=== PATIENT | male | born 1940 | race Caucasian/White ===

== ENCOUNTER 2022-01-14 20:36 | Inpatient (IN) ==
[2022-01-14 21:05] LABS: Basophils % 0.3 %; Eosinophils # 0.3 K/mcL (0.0-0.6); Eosinophils % 3.8 %; Hematocrit 39.3 % (37.5-50.1); Hemoglobin 12.7 g/dL (12.9-16.9); Immature Granulocytes % 0.5 % (0-4); Lymphocytes % 11.4 %; Mean Corpuscular HGB Conc 32.3 g/dL (31.6-35.5); Mean Corpuscular Hemoglobin 29.7 pg (28.0-33.3); Mean Platelet Volume 10.4 fL (9.4-12.4); Monocytes # 0.6 K/mcL (0.0-1.3); Monocytes % 6.4 %; Neutrophils # 6.8 K/mcL (1.6-8.9); Platelet Count 174 K/mcL (140-400); Red Blood Count 4.27 M/mcL (4.19-5.50); Red Cell Distribution Width 14.2 % (11.5-14.5); Segmented Neutrophils % 77.6 %; White Blood Count 8.7 K/mcL (4.3-11.1)
[2022-01-14 21:09] LABS: VBG HCO3 26 mEq/L (21-27); VBG PCO2 50 mmHg (41-51); VBG PH 7.33 pH Units (7.32-7.42); VBG PO2 28 mmHg (25-50)
[2022-01-14 21:37] LABS: Alanine Aminotransferase 16 Units/L (7-52); Albumin/Globulin Ratio 1.3 (1.1-2.2); Alkaline Phosphatase 63 Units/L (34-104); Aspartate Amino Transferase 32 Units/L (13-39); BUN/Creatinine Ratio 6 (6-26); Bilirubin,Total 0.8 mg/dL (0.3-1.0); Blood Urea Nitrogen 8 mg/dL (8-23); Calcium 8.9 mg/dL (8.6-10.3); Carbon Dioxide 27 mEq/L (23-29); Chloride 105 mEq/L (98-107); Globulin 3.1 g/dL (2.4-3.5); Glucose 49 mg/dL (70-105); Osmolality,Calculated 288 (280-300); Potassium 3.3 mEq/L (3.5-5.1); Sodium 141 mEq/L (136-145); Total Protein 7.1 g/dL (6.4-8.9); eGFR For African Americans > 60 (> 60); eGFR For Non-African Americans 56 (> 60)
[2022-01-14 21:42] LABS: Troponin I 0.06 ng/mL (< 0.04)
[2022-01-14] MEDS ORDERED: *HR* Dextrose 25% in Water (Syg) 10 ML SYRINGE IVP ONE (22:20)
[2022-01-14 22:22] LABS: Adenovirus Not Detected (Not Detect); Bordetella Pertussis Not Detected (Not Detect); Chlamydophila pneumoniae Not Detected (Not Detect); Coronavirus 229E Not Detected (Not Detect); Coronavirus HKU1 Not Detected (Not Detect); Coronavirus NL63 Not Detected (Not Detect); Coronavirus OC43 Not Detected (Not Detect); Human Metapneumovirus Not Detected (Not Detect); Human Rhinovirus/Enterovirus Not Detected (Not Detect); Influenza A Subtype 2009 H1 Not Detected (Not Detect); Influenza B Not Detected (Not Detect); Mycoplasma pneumoniae Not Detected (Not Detect); Parainfluenza Virus 1 Not Detected (Not Detect); Parainfluenza Virus 2 Not Detected (Not Detect); Parainfluenza Virus 3 Not Detected (Not Detect); Parainfluenza Virus 4 Not Detected (Not Detect); Respiratory Syncytial Virus Not Detected (Not Detect); SARS-CoV-2 Not Detected (Not Detect)
[2022-01-14] MEDS ORDERED: *HR* Dextrose 50 % in Water (Syg) 50 ML SYRINGE ONE (22:31)
[2022-01-14] MEDS ORDERED: Isovue-370 500 ML BOTTLE IVP ONE (23:38)
[2022-01-15] MEDS ORDERED: Naloxone 0.4 MG/ML INJ IVP PRN (01:00)
[2022-01-15] MEDS ORDERED: Melatonin 3 MG TABLET PO PRN (01:00)
[2022-01-15] MEDS ORDERED: Perflutren Lipid Microsphere 1.3 ML in 0.9 % Sodium Chloride 8.7 ML IVP PRN (01:51)
[2022-01-15] MEDS: Furosemide 20 MG/2 ML VIAL IVP SCH ×3 (02:00→21:43)
[2022-01-15] MEDS ORDERED: D5% in Water 1,000 ML IVC PRN (02:37)
[2022-01-15] MEDS ORDERED: Dextrose Gel 15 GM/37.5 ML TUBE PO PRN ×2 (02:37)
[2022-01-15] MEDS ORDERED: *HR* Dextrose 50 % in Water (Syg) 50 ML SYRINGE IVP PRN (02:37)
[2022-01-15 05:32] LABS: Hematocrit 48.7 % (37.5-50.1); Mean Corpuscular HGB Conc 33.5 g/dL (31.6-35.5); Mean Corpuscular Hemoglobin 30.5 pg (28.0-33.3); Mean Corpuscular Volume 91.2 fL (83.0-100.0); Mean Platelet Volume 10.5 fL (9.4-12.4); Platelet Count 194 K/mcL (140-400); Red Blood Count 5.34 M/mcL (4.19-5.50); Red Cell Distribution Width 14.4 % (11.5-14.5); White Blood Count 7.4 K/mcL (4.3-11.1)
[2022-01-15 05:44] LABS: Hemoglobin 16.3 g/dL (12.9-16.9)
[2022-01-15 05:51] LABS: BUN/Creatinine Ratio 6 (6-26); Blood Urea Nitrogen 7 mg/dL (8-23); Calcium 9.1 mg/dL (8.6-10.3); Carbon Dioxide 29 mEq/L (23-29); Chloride 106 mEq/L (98-107); Glucose 64 mg/dL (70-105); Magnesium 1.8 mg/dL (1.6-2.6); Osmolality,Calculated 290 (280-300); Potassium 3.8 mEq/L (3.5-5.1); Sodium 142 mEq/L (136-145); eGFR For African Americans > 60 (> 60); eGFR For Non-African Americans 58 (> 60)
[2022-01-15 06:01] LABS: Troponin I 0.06 ng/mL (< 0.04)
[2022-01-15] MEDS: *HR* Heparin 5,000 UNIT/ML VIAL SQ SCH ×2 (06:03→17:23)
[2022-01-15 06:09] LABS: Estimated Average Glucose 146 mg/dl; Hemoglobin A1C 6.7 %
[2022-01-15] MEDS: Insulin LISPRO 300 UNITS/3 ML VIAL SUBQ SCH ×4 (07:33→21:48)
[2022-01-15] MEDS: Aspirin 81 MG TAB.CHEW PO SCH (09:33)
[2022-01-16] MEDS ORDERED: diazePAM 10 MG/2 ML SYRINGE IVP ONE (03:07)
[2022-01-16 05:42] LABS: BUN/Creatinine Ratio 11 (6-26); Blood Urea Nitrogen 14 mg/dL (8-23); Calcium 8.7 mg/dL (8.6-10.3); Carbon Dioxide 24 mEq/L (23-29); Chloride 103 mEq/L (98-107); Glucose 130 mg/dL (70-105); Magnesium 1.8 mg/dL (1.6-2.6); Osmolality,Calculated 286 (280-300); Phosphorous 3.3 mg/dL (2.7-4.5); Potassium 4.1 mEq/L (3.5-5.1); Sodium 137 mEq/L (136-145); eGFR For African Americans > 60 (> 60); eGFR For Non-African Americans 57 (> 60)
[2022-01-16] MEDS: *HR* Heparin 5,000 UNIT/ML VIAL SQ SCH ×2 (05:56→17:35)
[2022-01-16] MEDS: Insulin LISPRO 300 UNITS/3 ML VIAL SUBQ SCH ×4 (07:33→20:41)
[2022-01-16] MEDS: Furosemide 20 MG/2 ML VIAL IVP SCH ×2 (07:34→20:47)
[2022-01-16] MEDS: Aspirin 81 MG TAB.CHEW PO SCH (07:34)
[2022-01-16] MEDS: QUEtiapine Fumarate 25 MG TABLET PO SCH ×2 (09:35→20:49)
[2022-01-16] MEDS ORDERED: Haloperidol Lactate 5 MG/ML VIAL IVP PRN (09:39)
[2022-01-17 02:40] LABS: BUN/Creatinine Ratio 13 (6-26); Blood Urea Nitrogen 16 mg/dL (8-23); Calcium 8.8 mg/dL (8.6-10.3); Carbon Dioxide 27 mEq/L (23-29); Chloride 101 mEq/L (98-107); Glucose 168 mg/dL (70-105); Magnesium 1.7 mg/dL (1.6-2.6); Osmolality,Calculated 295 (280-300); Phosphorous 3.1 mg/dL (2.7-4.5); Potassium 4.3 mEq/L (3.5-5.1); Sodium 140 mEq/L (136-145); eGFR For African Americans > 60 (> 60); eGFR For Non-African Americans 59 (> 60)
[2022-01-17] MEDS: *HR* Heparin 5,000 UNIT/ML VIAL SQ SCH ×2 (06:06→17:56)
[2022-01-17] MEDS: Aspirin 81 MG TAB.CHEW PO SCH (07:41)
[2022-01-17] MEDS: QUEtiapine Fumarate 25 MG TABLET PO SCH ×2 (07:41→21:02)
[2022-01-17] MEDS: Furosemide 20 MG/2 ML VIAL IVP SCH ×2 (07:42→21:02)
[2022-01-17] MEDS: Insulin LISPRO 300 UNITS/3 ML VIAL SUBQ SCH ×4 (07:45→21:02)
[2022-01-18 05:12] LABS: Basophils % 0.4 %; Eosinophils # 0.4 K/mcL (0.0-0.6); Eosinophils % 6.3 %; Hematocrit 50.1 % (37.5-50.1); Hemoglobin 16.3 g/dL (12.9-16.9); Immature Granulocytes % 0.1 % (0-4); Lymphocytes # 1.6 K/mcL (0.6-4.6); Lymphocytes % 23.9 %; Mean Corpuscular HGB Conc 32.5 g/dL (31.6-35.5); Mean Corpuscular Hemoglobin 29.6 pg (28.0-33.3); Mean Corpuscular Volume 90.9 fL (83.0-100.0); Mean Platelet Volume 11.3 fL (9.4-12.4); Monocytes # 0.7 K/mcL (0.0-1.3); Monocytes % 10.7 %; Platelet Count 170 K/mcL (140-400); Red Blood Count 5.51 M/mcL (4.19-5.50); Red Cell Distribution Width 14.1 % (11.5-14.5); Segmented Neutrophils % 58.6 %; White Blood Count 6.8 K/mcL (4.3-11.1)
[2022-01-18 06:09] LABS: BUN/Creatinine Ratio 16 (6-26); Blood Urea Nitrogen 19 mg/dL (8-23); Carbon Dioxide 28 mEq/L (23-29); Chloride 96 mEq/L (98-107); Glucose 174 mg/dL (70-105); Magnesium 1.7 mg/dL (1.6-2.6); Osmolality,Calculated 288 (280-300); Phosphorous 3.1 mg/dL (2.7-4.5); Potassium 3.7 mEq/L (3.5-5.1); Sodium 136 mEq/L (136-145); eGFR For African Americans > 60 (> 60); eGFR For Non-African Americans 58 (> 60)
[2022-01-18] MEDS: *HR* Heparin 5,000 UNIT/ML VIAL SQ SCH ×2 (06:21→18:48)
[2022-01-18] MEDS: Furosemide 20 MG/2 ML VIAL IVP SCH ×2 (07:48→21:42)
[2022-01-18] MEDS: Aspirin 81 MG TAB.CHEW PO SCH (07:49)
[2022-01-18] MEDS: Metoprolol XL (24 HR) Succ 25 MG TAB.ER.24H PO SCH (07:49)
[2022-01-18] MEDS: Spironolactone 12.5 MG TABLET PO SCH (07:49)
[2022-01-18] MEDS: Insulin LISPRO 300 UNITS/3 ML VIAL SUBQ SCH ×4 (11:29→21:44)
[2022-01-18] MEDS: QUEtiapine Fumarate 25 MG TABLET PO SCH (21:42)
[2022-01-18] MEDS ORDERED: diazePAM 10 MG/2 ML SYRINGE IVP ONE (23:16)
[2022-01-19] MEDS: *HR* Heparin 5,000 UNIT/ML VIAL SQ SCH ×2 (05:35→17:27)
[2022-01-19] MEDS ORDERED: *HR* LORazepam 2 MG/ML VIAL IVP ONE (06:25)
[2022-01-19] MEDS ORDERED: ISOVUE-370 200 ML INFUS..BTL ONE (08:12)
[2022-01-19] MEDS ORDERED: 0.9 % Sodium Chloride 1,000 ML ONE (08:12)
[2022-01-19] MEDS ORDERED: Nitroglycerin 1,000 MCG/5 ML VIAL IV ONE (08:12)
[2022-01-19] MEDS ORDERED: *HR* Heparin 10,000 UNIT/10 ML VIAL ONE (08:12)
[2022-01-19] MEDS ORDERED: Heparin 1,000 UNITS/500 mL 0 ML ONE (08:12)
[2022-01-19] MEDS: Insulin LISPRO 300 UNITS/3 ML VIAL SUBQ SCH ×4 (09:16→20:37)
[2022-01-19] MEDS: Spironolactone 12.5 MG TABLET PO SCH (09:16)
[2022-01-19] MEDS: QUEtiapine Fumarate 25 MG TABLET PO SCH (09:17)
[2022-01-19] MEDS: Aspirin 81 MG TAB.CHEW PO SCH (09:17)
[2022-01-19] MEDS: Furosemide 20 MG/2 ML VIAL IVP SCH (09:17)
[2022-01-19] MEDS: Metoprolol XL (24 HR) Succ 25 MG TAB.ER.24H PO SCH (09:17)
[2022-01-19 16:47] LABS: BUN/Creatinine Ratio 18 (6-26); Blood Urea Nitrogen 22 mg/dL (8-23); Calcium 9.4 mg/dL (8.6-10.3); Carbon Dioxide 24 mEq/L (23-29); Chloride 96 mEq/L (98-107); Glucose 205 mg/dL (70-105); Magnesium 1.9 mg/dL (1.6-2.6); Osmolality,Calculated 293 (280-300); Phosphorous 3.8 mg/dL (2.7-4.5); Potassium 4.2 mEq/L (3.5-5.1); Sodium 137 mEq/L (136-145); eGFR For African Americans > 60 (> 60); eGFR For Non-African Americans 56 (> 60)
[2022-01-19] MEDS ORDERED: QUEtiapine Fumarate 25 MG TABLET PO SCH (21:00)
[2022-01-20 04:33] LABS: Basophils % 0.4 %; Eosinophils # 0.6 K/mcL (0.0-0.6); Eosinophils % 7.7 %; Hematocrit 50.7 % (37.5-50.1); Hemoglobin 17.1 g/dL (12.9-16.9); Immature Granulocytes % 0.1 % (0-4); Lymphocytes # 1.2 K/mcL (0.6-4.6); Lymphocytes % 15.9 %; Mean Corpuscular HGB Conc 33.7 g/dL (31.6-35.5); Mean Corpuscular Hemoglobin 29.8 pg (28.0-33.3); Mean Corpuscular Volume 88.3 fL (83.0-100.0); Mean Platelet Volume 10.9 fL (9.4-12.4); Monocytes # 0.8 K/mcL (0.0-1.3); Monocytes % 10.3 %; Neutrophils # 4.9 K/mcL (1.6-8.9); Platelet Count 147 K/mcL (140-400); Red Blood Count 5.74 M/mcL (4.19-5.50); Red Cell Distribution Width 13.5 % (11.5-14.5); Segmented Neutrophils % 65.6 %; White Blood Count 7.4 K/mcL (4.3-11.1)
[2022-01-20 04:53] LABS: BUN/Creatinine Ratio 21 (6-26); Blood Urea Nitrogen 22 mg/dL (8-23); Calcium 8.8 mg/dL (8.6-10.3); Carbon Dioxide 25 mEq/L (23-29); Chloride 97 mEq/L (98-107); Glucose 139 mg/dL (70-105); Magnesium 1.7 mg/dL (1.6-2.6); Osmolality,Calculated 286 (280-300); Phosphorous 2.9 mg/dL (2.7-4.5); Potassium 3.5 mEq/L (3.5-5.1); Sodium 135 mEq/L (136-145); eGFR For African Americans > 60 (> 60); eGFR For Non-African Americans > 60 (> 60)
[2022-01-20] MEDS: *HR* Heparin 5,000 UNIT/ML VIAL SQ SCH (06:24)
[2022-01-20 07:35] VITALS: BP 120/76; PULSE 101; TEMP 97.7; O2SAT 95
[2022-01-20] MEDS: Aspirin 81 MG TAB.CHEW PO SCH (07:39)
[2022-01-20] MEDS: Metoprolol XL (24 HR) Succ 25 MG TAB.ER.24H PO SCH (07:39)
[2022-01-20] MEDS: Spironolactone 12.5 MG TABLET PO SCH (07:39)
[2022-01-20] MEDS: QUEtiapine Fumarate 25 MG TABLET PO SCH (07:39)
[2022-01-20] MEDS: Insulin LISPRO 300 UNITS/3 ML VIAL SUBQ SCH (07:40)
[2022-01-20] MEDS ORDERED: Furosemide 20 MG TABLET PO SCH (09:00)
[2022-01-20] MEDS ORDERED: lisinopriL 10 MG TABLET PO SCH (09:00)
== END 2022-01-20 11:30 | disposition home or self-care (01) | DRG 280 ==
LOC: EMEROOARM 20:36 → 3ANU 20:36 → SUATTDRO 01-15 02:10 → 3ANU 01-15 03:27 → SUATTDRO 01-16 13:40
PROVIDERS: ADMIT Student in an Organized Health Care Education/Training Program; ATTEND Internal Medicine

== ENCOUNTER 2022-08-11 12:36 | Observation (INO) ==
[2022-08-11 14:11] LABS: Hemoglobin 14.5 g/dL (12.9-16.9); Mean Corpuscular HGB Conc 34.5 g/dL (31.6-35.5); Mean Corpuscular Hemoglobin 31.2 pg (28.0-33.3); Mean Corpuscular Volume 90.3 fL (83.0-100.0); Platelet Count 193 K/mcL (140-400); Red Blood Count 4.65 M/mcL (4.19-5.50); Red Cell Distribution Width 11.8 % (11.5-14.5); White Blood Count 9.1 K/mcL (4.3-11.1)
[2022-08-11 14:24] LABS: INR 1.2; Prothrombin Time 13.6 Seconds (9.4-12.1)
[2022-08-11] MEDS ORDERED: Iopamidol - 370 500 ML MLS IVP ONE (14:24)
[2022-08-11 14:35] LABS: BUN/Creatinine Ratio 19 (6-26); Blood Urea Nitrogen 25 mg/dL (8-23); Calcium 9.4 mg/dL (8.6-10.3); Carbon Dioxide 26 mEq/L (23-29); Chloride 97 mEq/L (98-107); Ethanol < 10 mg/dL (Less than 10); Glucose 406 mg/dL (70-105); Osmolality,Calculated 297 (280-300); Potassium 4.1 mEq/L (3.5-5.1); Sodium 133 mEq/L (136-145); Troponin I < 0.03 ng/mL (< 0.04)
[2022-08-11 15:10] LABS: Bilirubin,Urine Negative (Negative); Blood,Urine Negative (Negative); Clarity,Urine Clear (Clear); Color,Urine Colorless (Yellow); Glucose,Urine (UA) >=1000 mg/dL (Normal); Ketones,Urine Negative (Negative); Leukocyte Esterase,Urine Trace (Negative); Mucus,Urine Few per lpf (None-Few); Nitrite,Urine Negative (Negative); Protein,Urine Negative (Neg-Trace); RBC,Urine 0-3 per hpf (0-3); Specific Gravity,Urine 1.008 (1.010-1.025); Squamous Epithelial Cell,Urine Few per hpf (None-Few); Urobilinogen,Urine Normal (Normal); WBC,Urine 0-3 per hpf (0-3)
[2022-08-11 15:23] LABS: Amphetamine Screen,Urine Negative ng/mL (Cutoff=1000); Barbiturate Screen,Urine Negative ng/mL (Cutoff=200); Benzodiazepines Screen,Urine Negative ng/mL (Cutoff=200); Cannabinoid Screen,Urine Negative ng/mL (Cutoff = 50); Cocaine Screen,Urine Negative ng/mL (Cutoff= 300); Opiate Screen,Urine Negative ng/mL (Cutoff=300); Phencyclidine Screen,Urine Negative ng/mL (Cutoff=25)
[2022-08-11] MEDS ORDERED: Naloxone 0.4 MG/ML INJ IVP PRN (19:33)
[2022-08-11] MEDS ORDERED: Ondansetron ODT 4 MG TAB.RAPDIS SL PRN (19:33)
[2022-08-11] MEDS ORDERED: Melatonin 3 MG TABLET PO PRN (19:33)
[2022-08-11] MEDS ORDERED: Ringers Solution, Lactated 1,000 ML IVC SCH (19:45)
[2022-08-11] MEDS ORDERED: Aspirin 81 MG TAB.CHEW PO ONE (20:18)
[2022-08-11] MEDS ORDERED: Dextrose Gel 15 GM/37.5 ML TUBE PO PRN ×2 (20:58)
[2022-08-11] MEDS ORDERED: *HR* Dextrose 50 % in Water (Syg) 50 ML SYRINGE IVP PRN (20:58)
[2022-08-11] MEDS ORDERED: D5% in Water 1,000 ML IVC PRN (20:58)
[2022-08-11] MEDS: Insulin LISPRO 300 UNITS/3 ML VIAL SUBQ SCH (23:39)
[2022-08-12 00:09] LABS: Sodium, Urine 64.5 mEq/L
[2022-08-12] MEDS: Insulin LISPRO 300 UNITS/3 ML VIAL SUBQ SCH ×4 (05:24→23:36)
[2022-08-12] MEDS ORDERED: *HR* Heparin 5,000 UNIT/ML VIAL SQ SCH (06:00)
[2022-08-12 06:16] LABS: Hemoglobin 14.2 g/dL (12.9-16.9); Mean Corpuscular HGB Conc 33.8 g/dL (31.6-35.5); Mean Corpuscular Hemoglobin 30.1 pg (28.0-33.3); Mean Platelet Volume 9.6 fL (9.4-12.4); Platelet Count 202 K/mcL (140-400); Red Blood Count 4.72 M/mcL (4.19-5.50); Red Cell Distribution Width 11.6 % (11.5-14.5); White Blood Count 7.2 K/mcL (4.3-11.1)
[2022-08-12 06:25] LABS: Calcium 9.2 mg/dL (8.6-10.3); Magnesium 1.9 mg/dL (1.6-2.6); Phosphorous 2.8 mg/dL (2.7-4.5); Potassium 3.9 mEq/L (3.5-5.1)
[2022-08-12 08:39] LABS: Chol/HDL Ratio 5.2 (0-4.9)
[2022-08-12] MEDS ORDERED: Aspirin 81 MG TAB.CHEW PO SCH (09:00)
[2022-08-12 11:05] LABS: Estimated Average Glucose 243 mg/dl; Hemoglobin A1C 10.1 %
[2022-08-12] MEDS: *HR* Heparin 5,000 UNIT/ML VIAL SQ SCH (17:23)
[2022-08-13] MEDS: Insulin LISPRO 300 UNITS/3 ML VIAL SUBQ SCH ×3 (06:28→11:57)
[2022-08-13] MEDS: *HR* Heparin 5,000 UNIT/ML VIAL SQ SCH (06:28)
[2022-08-13] MEDS ORDERED: lisinopriL 10 MG TABLET PO SCH (09:00)
[2022-08-13] MEDS ORDERED: Spironolactone 12.5 MG TABLET PO SCH (09:00)
[2022-08-13] MEDS ORDERED: Furosemide 20 MG TABLET PO SCH (09:00)
[2022-08-13] MEDS ORDERED: Insulin NPH/REG 70/30 100 UNIT/ML (x5UNIT) SUBQ SCH ×2 (09:00→18:00)
[2022-08-13] MEDS ORDERED: Metoprolol XL (24 HR) Succ 25 MG TAB.ER.24H PO SCH (09:00)
[2022-08-13] MEDS ORDERED: Aspirin 325 MG TABLET PO SCH (09:00)
[2022-08-13 10:52] VITALS: BP 151/68; PULSE 94; TEMP 97.6; O2SAT 96
== END 2022-08-13 15:31 | disposition home or self-care (01) ==
LOC: EMEROOARM 12:36 → 3BNU 12:36 → SUATTDRO 18:56 → 3BNU 19:40
PROVIDERS: ADMIT General Practice; ATTEND Internal Medicine